=== PATIENT | male | born 1965 | race African-American/Black ===

== ENCOUNTER 2016-11-23 23:38 | Emergency (ER) | payer OTHER ==
[~2016-11-23] VITALS: Ht 180.3 cm; Wt 86.2 kg
[~2016-11-23 23:38] MED LIST: BACITRACIN1 APPLIC TOPIC; KEFLEX500 MG ORAL
[2016-11-23] MEDS ORDERED: NKM (23:47)
[2016-11-23] MEDS ORDERED: POLYTRIM OP SOL10 ML OPHTHALM (23:54)
--- NOTE | 2016-11-23 23:54 | Emergency Room Report ---
History of Present Illness General Chief Complaint: Eye Problems Source: Patient Present Illness HPI Is a 51-year-old male with no significant past medical history. He presents with swelling to the right eyelid. Onset tonight. Also with a runny nose congestion. No discharge. No visual complaint. No pain. Allergies: Coded Allergies: No Known Allergies (Unverified , 03/28/15) Patient History Past Medical History: see triage record, old chart reviewed Past Surgical History: none Pertinent Family History: none Social History: Denies: smoking Immunizations: other Reviewed Nursing Documentation: PMH: Agreed, PSxH: Agreed Nursing Documentation-PMH Past Medical History: No Stated History Review of Systems Eye: Denies: blurred vision, eye pain ENT: Reports: nose congestion, Denies: ear pain, throat swelling Respiratory: Reports: cough, Denies: shortness of breath Cardiovascular: Denies: chest pain, palpitations Gastrointestinal: Denies: abdominal pain, diarrhea, nausea, vomiting Musculoskeletal: Denies: back pain, joint pain Skin: Denies: rash Neurological: Denies: headache, numbness Endocrine: Denies: increased thirst, increased urine Hematologic/Lymphatic: Denies: easy bruising All Other Systems: negative except mentioned in HPI Physical Exam Vital Signs Date Time Temp Pulse Resp B/P Pulse Ox O2 Delivery O2 Flow Rate FiO2 11/23/16 23:44 98.1 69 16 134/91 96 Room Air vitals normal Sp02 EP Interpretation: reviewed, normal General Appearance: well appearing, no apparent distress, alert Head: normocephalic, atraumatic Eyes: right eye other - Right lower eyelid with puffiness. No stye., bilateral eye EOMI, bilateral eye PERRL ENT: hearing grossly normal, normal pharynx Neck: full range of motion, supple, no meningismus Respiratory: chest non-tender, lungs clear, normal breath sounds Cardiovascular #1: regular rate, rhythm, no murmur Gastrointestinal: normal bowel sounds, non tender, no mass, no organomegaly, no bruit, non-distended Musculoskeletal: back normal, gait/station normal, normal range of motion Psychiatric: mood/affect normal Skin: warm/dry Medical Decision Making Diagnostic Impression: Primary Impression: Blepharitis of lower eyelid ER Course Patient with inflammation and lower eyelid. No evidence of abscess. We'll discharge home. Last Vital Signs Date Time Temp Pulse Resp B/P Pulse Ox O2 Delivery O2 Flow Rate FiO2 11/23/16 23:44 98.1 69 16 134/91 96 Room Air Status: improved Disposition: HOME, SELF-CARE Condition: Stable Scripts Polymyxin/Trimethoprim (Polytrim Eye Drops) 10 Ml Drops 2 DROP OPHTHALM THREE TIMES A DAY, #1 EA Instill in affected eye for 7 days Prov: ESPERANZA [place] M.D. 11/23/16 Additional Instructions: Warm compress to the area. Do not rub your eye. Followup with your Dr. in 7 days. Return if worse. ESPERANZA [place] M.D. Nov 23, 2016 23:54
[2016-11-24] VITALS: BP 134/91
[2016-11-24 00:05] VITALS: BP 134/91
== END 2016-11-24 00:05 | disposition home or self-care (01) ==
LOC: EMR 23:58
DX: H01.002 Unspecified blepharitis right lower eyelid (principal)
CPT/HCPCS: 99283